=== PATIENT | male | born 1960 | race Caucasian/White ===

== ENCOUNTER 2023-01-12 10:08 | Inpatient (IN) | payer OTHER ==
[~2023-01-12] VITALS: Ht 167.6 cm; Wt 80.0 kg
[2023-01-12 10:30] LABS: BASOPHILS # (AUTO) 0.1 X10'3 (0-0.2); EOSINOPHILS # (AUTO) 0.1 X10'3 (0-0.9); EOSINOPHILS % (AUTO) 1.6 % (0-6); HEMATOCRIT 49.5 % (42.0-52.0); HEMOGLOBIN 16.7 g/dl (14.0-17.9); LYMPHOCYTES # (AUTO) 1.7 X10'3 (1.1-4.8); LYMPHOCYTES % (AUTO) 28.7 % (21-51); MEAN CORPUSCULAR HEMOGLOBIN 29.8 PG (27.0-31.0); MEAN CORPUSCULAR HGB CONC 33.8 g/dL (33.0-36.5); MEAN CORPUSCULAR VOLUME 88.1 FL (78-98); MEAN PLATELET VOLUME 7.5 FL (7.4-10.4); MONOCYTES # (AUTO) 0.5 X10'3 (0-0.9); MONOCYTES % (AUTO) 7.9 % (2-12); NEUTROPHILS # (AUTO) 3.5 X10'3 (1.8-7.7); NEUTROPHILS % (AUTO) 60.8 % (42-75); PLATELET COUNT 249 X10'3 (140-440); RED BLOOD COUNT 5.61 X10'6 (4.70-6.10); RED CELL DISTRIBUTION WIDTH 14.4 % (11.5-14.5); WHITE BLOOD COUNT 5.8 X10'3 (4.5-11.0)
[2023-01-12 10:43] LABS: ALANINE AMINOTRANSFERASE 33 U/L (12-78); ALBUMIN/GLOBULIN RATIO 1.1 (1.1-1.5); ALKALINE PHOSPHATASE 101 IU/L (46-116); ASPARTATE AMINO TRANSFERASE 20 U/L (10-37); BILIRUBIN,TOTAL 0.4 MG/DL (0.1-1.0); CALCIUM 9.6 MG/DL (8.5-10.1); TOTAL CARBON DIOXIDE 28.8 MMOL/L (24-32); TOTAL PROTEIN 7.5 G/DL (6.4-8.2)
[2023-01-12 10:51] LABS: PRO BRAIN NATRIURETIC PEPTIDE 62 PG/ML (0-125)
[2023-01-12 11:24] LABS: ANION GAP 9 (8-16); BLOOD UREA NITROGEN 7 MG/DL (7-18); CHLORIDE 96 MMOL/L (99-107); CREATININE 0.88 MG/DL (0.60-1.10); GLUCOSE 154 MG/DL (70-104); POTASSIUM 3.3 MMOL/L (3.5-5.1); SODIUM 134 MMOL/L (135-145); eCRCL 80 ML/MIN; eGFR 88 ML/MIN
[2023-01-12] MEDS ORDERED: magnesium 4gm in 100ml NS 100 ML IV PRN (17:15)
[2023-01-12] MEDS ORDERED: magnesium 2GM in 50ml NS 50 ML IV PRN (17:15)
[2023-01-12] MEDS ORDERED: magnesium hydroxide 30ml (MOM) UD suspension PO PRN (17:15)
[2023-01-12] MEDS ORDERED: mag hydrox/Alum hydrox/simeth 30ml oral suspension PO PRN (17:15)
[2023-01-12] MEDS ORDERED: ondansetron/PF 4mg/2ml inj IV PRN (17:15)
[2023-01-12] MEDS ORDERED: acetaminophen 325mg tablet PO PRN (17:15)
[2023-01-12] MEDS ORDERED: potassium Cl 20 mEq SR tablet PO PRN ×2 (17:15)
[2023-01-12] MEDS ORDERED: magnesium Cl slow-release 64mg tablet PO PRN (17:15)
[2023-01-12] MEDS ORDERED: potassium Cl 40MEQ/1/2NS 520ml 520 ML IV PRN (17:15)
[2023-01-12] MEDS ORDERED: diphenhydrAMINE 25mg capsule PO PRN (17:15)
[2023-01-12] MEDS ORDERED: ALIR150P6 SQ (17:55)
[2023-01-12] MEDS ORDERED: AMLO5TAB16 PO (17:56)
[2023-01-12] MEDS ORDERED: ICOS1CAP PO (17:56)
[2023-01-12] MEDS ORDERED: CLOP75TA34 PO (17:56)
[2023-01-12] MEDS ORDERED: CHOL20004 PO (17:57)
[2023-01-12] MEDS ORDERED: CETI-90 PO (17:58)
[2023-01-12] MEDS ORDERED: [UNRECOGNIZED DRUG - OTHER] NAS (17:58)
[2023-01-12] MEDS ORDERED: OXYM30SP26 BOTHNARES (17:59)
[2023-01-12 18:09] LABS: MAGNESIUM 1.8 MG/DL (1.5-2.4)
[2023-01-12 18:22] LABS: HEMOGLOBIN A1C 5.6 % (4.5-6.2)
[2023-01-12] MEDS ORDERED: nitroGLYCERIN 0.4mg SUBLingual tab SL PRN ×2 (19:20→21:00)
[2023-01-12] MEDS: heparin, porcine 5000 units/ml vial SQ SCH (20:00)
[2023-01-12] MEDS: docusate sod 100mg capsule PO SCH (20:00)
[2023-01-12] MEDS: K and/or MAG REPLACEMENT MC SCH (20:07)
[2023-01-12] MEDS ORDERED: regadenoson 0.4mg/5ml syringe IV PRN (21:00)
[2023-01-12] MEDS ORDERED: clopidogrel 75mg tablet PO SCH (21:00)
[2023-01-12] MEDS ORDERED: metoprolol tartrate 1mg/ml inj IV PRN (21:00)
[2023-01-12] MEDS ORDERED: aminophylline 250mg/10ml inj. IV PRN (21:00)
[2023-01-12 21:10] VITALS: BP_SYST 117; BP_SYST 177; BP_DIAS 60; BP_DIAS 84; PULSE 63; PULSE 70; RESP 16; RESP 20; TEMP 97.7; TEMP 97.8; O2SAT 95; O2SAT 98
[2023-01-12] MEDS ORDERED: salt irrigation nasal spray 45 ML SPRAY NS PRN (21:10)
[2023-01-12] MEDS ORDERED: cetirizine 10mg tablet PO PRN (21:10)
[2023-01-12] MEDS ORDERED: ALIROCUMAB 150 MG SQ SCH (21:10)
[2023-01-12] MEDS: amLODIPine 5mg tablet PO SCH (21:32)
--- NOTE | 2023-01-12 21:55 | NUR ---
attempted to call report nurse on break will f/u.
--- NOTE | 2023-01-12 22:05 | NUR ---
Patient in room [facility] 4015. I have received report from FROILAN Hollis and had the opportunity to ask questions and assume patient care.
--- NOTE | 2023-01-12 22:20 | NUR ---
pt arrived to floor via wheelchair. settled into bed. oriented to the room. call light in reach.
[2023-01-12 22:30] VITALS: BP 177/84; PULSE 63; RESP 16; TEMP 97.8; O2SAT 98
[2023-01-13] VITALS (23 sets, daily range): BP systolic 136–175; BP diastolic 69–96; PULSE 54–131; RESP 12–22; TEMP 97.1–98.5; O2SAT 96–100
[2023-01-13 06:16] LABS: BASOPHILS # (AUTO) 0.1 X10'3 (0-0.2); EOSINOPHILS # (AUTO) 0.1 X10'3 (0-0.9); EOSINOPHILS % (AUTO) 1.3 % (0-6); HEMATOCRIT 49.3 % (42.0-52.0); HEMOGLOBIN 16.8 g/dl (14.0-17.9); LYMPHOCYTES # (AUTO) 2.4 X10'3 (1.1-4.8); LYMPHOCYTES % (AUTO) 29.9 % (21-51); MEAN CORPUSCULAR HEMOGLOBIN 30.1 PG (27.0-31.0); MEAN CORPUSCULAR VOLUME 88.4 FL (78-98); MEAN PLATELET VOLUME 7.4 FL (7.4-10.4); MONOCYTES # (AUTO) 0.7 X10'3 (0-0.9); MONOCYTES % (AUTO) 8.4 % (2-12); NEUTROPHILS # (AUTO) 4.8 X10'3 (1.8-7.7); NEUTROPHILS % (AUTO) 59.4 % (42-75); PLATELET COUNT 248 X10'3 (140-440); RED BLOOD COUNT 5.57 X10'6 (4.70-6.10); RED CELL DISTRIBUTION WIDTH 13.9 % (11.5-14.5)
--- NOTE | 2023-01-13 06:27 | NUR ---
Problems reprioritized. Patient report given, questions answered & plan of care reviewed with ERICA Andres.
[2023-01-13 06:31] LABS: ALANINE AMINOTRANSFERASE 31 U/L (12-78); ALBUMIN 3.7 G/DL (3.4-5.0); ALBUMIN/GLOBULIN RATIO 1.1 (1.1-1.5); ALKALINE PHOSPHATASE 94 IU/L (46-116); ANION GAP 6 (8-16); ASPARTATE AMINO TRANSFERASE 18 U/L (10-37); BILIRUBIN,TOTAL 0.6 MG/DL (0.1-1.0); BLOOD UREA NITROGEN 11 MG/DL (7-18); BUN/CREATININE RATIO 12.1 (10.0-20.0); CALCIUM 9.5 MG/DL (8.5-10.1); CHLORIDE 104 MMOL/L (99-107); CHOL/HDL RATIO 5.3 (0.00-4.99); CHOLESTEROL 174 MG/DL (0-200); CREATININE 0.91 MG/DL (0.60-1.10); GLUCOSE 100 MG/DL (70-104); HDL CHOLESTEROL 33 MG/DL (35-60); LDL CHOLESTEROL 106 MG/DL (50-100); POTASSIUM 4.4 MMOL/L (3.5-5.1); SODIUM 139 MMOL/L (135-145); TOTAL CARBON DIOXIDE 28.8 MMOL/L (24-32); TOTAL PROTEIN 7.1 G/DL (6.4-8.2); TRIGLYCERIDES 226 MG/DL (20-135); eCRCL 77 ML/MIN; eGFR 85 ML/MIN
[2023-01-13] MEDS: K and/or MAG REPLACEMENT MC SCH ×2 (08:00→20:00)
[2023-01-13] MEDS ORDERED: cholecalciferol (vitamin D3) 1,000 unit (25mcg) tablet PO SCH (08:00)
[2023-01-13] MEDS: heparin, porcine 5000 units/ml vial SQ SCH (08:00)
[2023-01-13] MEDS: docusate sod 100mg capsule PO SCH ×2 (08:00→20:00)
--- NOTE | 2023-01-13 08:23 | NUR ---
To nuc med via wc
--- NOTE | 2023-01-13 12:00 | NUR ---
Patient remains NPO per Dr Li.
[2023-01-13] MEDS ORDERED: midazolam 1 mg/ML 2ml injection ONE ×2 (16:17→18:37)
[2023-01-13] MEDS ORDERED: fentaNYL/PF 50MCG/1 ML 2ML syringe ONE (16:17)
[2023-01-13] MEDS ORDERED: verapamil 2.5 mg/ml inj IV ONE (16:17)
[2023-01-13] MEDS ORDERED: nitroGLYCERIN 500mcg/5mL D5W 5 ML IV ONE ×3 (16:18→18:33)
[2023-01-13] MEDS ORDERED: iohexol 350MG/ML 100ml bottle IV ONE ×3 (16:18→18:42)
[2023-01-13] MEDS ORDERED: heparin 1,000unit/ml 10ml vial 10 ML ONE (16:18)
[2023-01-13] MEDS ORDERED: iohexol 350 MG/ML 50ML vial IV ONE (16:18)
[2023-01-13] MEDS ORDERED: LIDOcaine 1% (10mg/ml) 2ml vial ONE (16:26)
[2023-01-13] MEDS ORDERED: heparin 25,000 UNIT/250ml bag 250 ML IV ONE (16:52)
[2023-01-13] MEDS ORDERED: metoprolol tartrate 1mg/ml inj IV ONE (17:52)
[2023-01-13] MEDS ORDERED: morphine 2 MG/ML inj. syringe ONE (17:58)
--- NOTE | 2023-01-13 18:00 | NUR ---
Patient in room [facility] 4015. I have received report from ERICA Andres and had the opportunity to ask questions and assume patient care.
--- NOTE | 2023-01-13 18:08 | NUR ---
Report to Christi MALDONADO. Patient is in laboratory phlebotomist for possible stent placement
[2023-01-13] MEDS ORDERED: heparin 1,000 UNITS/NS 500ml 500 ML ONE (18:09)
[2023-01-13] MEDS ORDERED: aspirin 325mg tablet ONE (18:54)
[2023-01-13] MEDS ORDERED: ticagrelor 90mg tablet ONE (18:54)
--- NOTE | 2023-01-13 19:30 | NUR ---
Received patient from [employer] Specialist via stretcher, transferred to bed with assistance. No bleeding noted at Right radial vas band, VSS, afebrile. Patient oriented to room and equipment. at bedside.
[2023-01-13] MEDS ORDERED: HYDROcodone/acetaminophen 5mg/325mg tablet PO PRN (20:30)
[2023-01-13] MEDS ORDERED: normal saline 1000ml 1,000 ML IV SCH (20:30)
[2023-01-13] MEDS ORDERED: heparin 10,000 units/1 ML INJ IV ONE (20:30)
[2023-01-13] MEDS ORDERED: heparin 25,000 UNIT/250ml bag 250 ML IV PRN (20:30)
[2023-01-13] MEDS ORDERED: HYDROcodone/acetaminophen 10/325mg tab PO PRN (20:30)
[2023-01-13] MEDS ORDERED: oxymetazoline 15 ML nasal spray NS PRN (20:30)
[2023-01-13] MEDS: amLODIPine 5mg tablet PO SCH (21:37)
[2023-01-14 06:00] VITALS: BP 154/69; PULSE 64; RESP 11; TEMP 97.7; O2SAT 100
--- NOTE | 2023-01-14 06:47 | NUR ---
Patient report given, questions answered & plan of care reviewed with ERICA Mart
[2023-01-14 07:17] LABS: BASOPHILS # (AUTO) 0.1 X10'3 (0-0.2); BASOPHILS % (AUTO) 0.7 % (0-1); EOSINOPHILS # (AUTO) 0.1 X10'3 (0-0.9); EOSINOPHILS % (AUTO) 0.9 % (0-6); HEMATOCRIT 45.9 % (42.0-52.0); HEMOGLOBIN 15.5 g/dl (14.0-17.9); LYMPHOCYTES # (AUTO) 2.1 X10'3 (1.1-4.8); LYMPHOCYTES % (AUTO) 26.6 % (21-51); MEAN CORPUSCULAR HEMOGLOBIN 29.9 PG (27.0-31.0); MEAN CORPUSCULAR HGB CONC 33.7 g/dL (33.0-36.5); MEAN CORPUSCULAR VOLUME 88.6 FL (78-98); MEAN PLATELET VOLUME 7.7 FL (7.4-10.4); MONOCYTES # (AUTO) 0.8 X10'3 (0-0.9); MONOCYTES % (AUTO) 9.7 % (2-12); NEUTROPHILS # (AUTO) 4.8 X10'3 (1.8-7.7); NEUTROPHILS % (AUTO) 62.1 % (42-75); PLATELET COUNT 220 X10'3 (140-440); RED BLOOD COUNT 5.18 X10'6 (4.70-6.10); RED CELL DISTRIBUTION WIDTH 14.1 % (11.5-14.5); WHITE BLOOD COUNT 7.8 X10'3 (4.5-11.0)
[2023-01-14 07:59] LABS: CHOL/HDL RATIO 4.2 (0.00-4.99); CHOLESTEROL 157 MG/DL (0-200); CREATININE 0.78 MG/DL (0.60-1.10); HDL CHOLESTEROL 37 MG/DL (35-60); LDL CHOLESTEROL 99 MG/DL (50-100); TRIGLYCERIDES 96 MG/DL (20-135); eCRCL 90 ML/MIN; eGFR > 90 ML/MIN
[2023-01-14] MEDS: docusate sod 100mg capsule PO SCH (08:00)
[2023-01-14] MEDS: K and/or MAG REPLACEMENT MC SCH (08:00)
[2023-01-14] MEDS ORDERED: ticagrelor 90mg tablet PO SCH (08:00)
[2023-01-14 11:00] VITALS: BP 124/71; PULSE 73; RESP 18; TEMP 97.7; O2SAT 99
[2023-01-14] MEDS ORDERED: TICA90TA PO (12:08)
[2023-01-14] MEDS ORDERED: ASPI-1265 PO (12:08)
--- NOTE | 2023-01-14 12:30 | NUR ---
Discharge instructions discussed with pt and . Expressed the importance of not missing a dose of his new medications. pt and state they understand. Discussed all other medications and follow up appointments. Pt and spouse will go directly to the pharmacy to continuous pickling line pickler the medications. All questions answered. pt and state they understand all instructions. Pt will ambulate on own off of unit to a private car.
== END 2023-01-14 13:00 | disposition home or self-care (01) | DRG 229 ==
LOC: ER 10:09 → ED HOLD 17:23 → ORTHO 4S 22:21 → PCU 3S 01-13 19:30
PROVIDERS: ADMIT Family Medicine; ATTEND Family Medicine
PROC: 02703ZZ Dilation of Coronary Artery, One Artery, Percutaneous Approach (ICD-10-PCS; principal; 2023-01-12)
PROC: 027004Z Dilation of Coronary Artery, One Artery with Drug-eluting Intraluminal Device, Open Approach (ICD-10-PCS; 2023-01-12)
PROC: 4A023N7 Measurement of Cardiac Sampling and Pressure, Left Heart, Percutaneous Approach (ICD-10-PCS; 2023-01-12)
PROC: B2111ZZ Fluoroscopy of Multiple Coronary Arteries using Low Osmolar Contrast (ICD-10-PCS; 2023-01-12)
PROC: B2151ZZ Fluoroscopy of Left Heart using Low Osmolar Contrast (ICD-10-PCS; 2023-01-12)
PROC: B240ZZ3 Ultrasonography of Single Coronary Artery, Intravascular (ICD-10-PCS; 2023-01-12)
PROC: 4A02XM4 Measurement of Cardiac Total Activity, External Approach (ICD-10-PCS; 2023-01-12)
PROC: 3E073KZ Introduction of Other Diagnostic Substance into Coronary Artery, Percutaneous Approach (ICD-10-PCS; 2023-01-12)
DX: T82.855A Stenosis of coronary artery stent, initial encounter (principal); I16.0 Hypertensive urgency; E87.6 Hypokalemia; I25.2 Old myocardial infarction; I25.118 Atherosclerotic heart disease of native coronary artery with other forms of angina pectoris; E78.5 Hyperlipidemia, unspecified; F17.210 Nicotine dependence, cigarettes, uncomplicated; Y83.8 Other surgical procedures as the cause of abnormal reaction of the patient, or of later complication, without mention of misadventure at the time of the procedure; I10 Essential (primary) hypertension; Z79.01 Long term (current) use of anticoagulants; Z95.5 Presence of coronary angioplasty implant and graft; Z79.899 Other long term (current) drug therapy; Z82.49 Family history of ischemic heart disease and other diseases of the circulatory system; Y92.89 Other specified places as the place of occurrence of the external cause
CPT/HCPCS: 92978; 93306; 93458; 99285; C9600; C9603; 36415; 71045; 76937; 78452; 80053; 80061; 82565; 83036; 83735; 83880; 84484; 85025; 85347; 87081; 93005; 93017; 99152; 99153; A6258; A9500; C1725; C1751; C1753; C1769; C1874; C1894; G0378; J1644; J2250; J2270; J2785; J3010; J3490; J7030; Q9967